=== PATIENT | female | born 1965 | race Caucasian/White ===

== ENCOUNTER → 2017-09-07 16:23 | Outpatient (CLI) | payer OTHER, SELFPAY ==
--- NOTE | 2017-09-07 16:33 | HPBI_ITS ---
MAMMOGRAPHY - BILATERAL SCREENING REASON FOR EXAM: Female, 51 years old. Routine annual screening examination. PERTINENT HISTORY: Mother with breast cancer. Grandmother with breast cancer. TECHNIQUE: Digital bilateral breast addis (3D mammographic acquisition) in the CC and MLO projections. 2-D mediolateral oblique (MLO) and craniocaudad (CC) views of both breasts were obtained. CAD: Full Field Digital Mammography with Computer Added Detection was performed. COMPARISON: Comparison is made with prior outside examination dated January 07, 2016. FINDINGS: Breast Composition: The breasts are extremely dense, which lowers the sensitivity of mammography. There are no dominant masses or suspicious calcifications. No other significant abnormalities are identified. There has been no significant change since the prior study. HPBI/SCREENING MAMM (CAD), BILAT IMPRESSION: Stable bilateral screening mammogram. Yearly follow-up mammogram recommended. (A) ASSESSMENT CATEGORY: BIRADS Category 1: Negative. A letter regarding these results will be sent to the patient by the facility within 30 days. Approximately 10% of breast cancers are not detected by mammography. A normal mammogram should not delay biopsy of a clinically suspicious abnormality. [id number] Electronically Signed: Gilberto Quinn MD at 8:53 EST Tel [phone], Service support ,
== END ==
PROVIDERS: Family Provider Family Medicine; PCP Family Medicine; Visit Provider Nurse Practitioner Women's Health
DX: Z12.31 Encounter for screening mammogram for malignant neoplasm of breast (principal)
CPT/HCPCS: 77063; 77067

== ENCOUNTER → 2019-12-22 10:57 | Outpatient (CLI) | payer OTHER, SELFPAY ==
[2019-12-22 10:40] VITALS: BMI 23.6
--- NOTE | 2019-12-22 10:58 | BI_ITS ---
MAMMOGRAPHY - BILATERAL SCREENING REASON FOR EXAM: Female, 54 years old. Routine annual screening examination. PERTINENT HISTORY: Mother with breast cancer. Grandmother with breast cancer. TECHNIQUE: Digital bilateral breast perez (3D mammographic acquisition) in the CC and MLO projections. 2-D mediolateral oblique (MLO) and craniocaudad (CC) views of both breasts were obtained. CAD: Full Field Digital Mammography with Computer Added Detection was performed. COMPARISON: Comparison is made with prior examination dated September 07, 2017. FINDINGS: Breast Composition: The breasts are extremely dense, which lowers the sensitivity of mammography. There are no dominant masses or suspicious calcifications. Stable benign appearing bilateral axillary lymph nodes. No other significant abnormalities are identified. There has been no significant change since the prior study. BI/SCREEN MAMM (CAD) W/PEREZ BILAT IMPRESSION: Stable bilateral screening mammogram. Yearly follow-up mammogram recommended. (A) ASSESSMENT CATEGORY: BIRADS Category 2: Benign. A letter regarding these results will be sent to the patient by the facility within 30 days. Approximately 10% of breast cancers are not detected by mammography. A normal mammogram should not delay biopsy of a clinically suspicious abnormality. [id number] Electronically Signed: Gilberto Quinn, at 10:36 EDT , Service support ,
== END ==
PROVIDERS: PCP Family Medicine; Referring Provider Nurse Practitioner Women's Health; Visit Provider Nurse Practitioner Women's Health
DX: Z12.31 Encounter for screening mammogram for malignant neoplasm of breast (principal); Z80.3 Family history of malignant neoplasm of breast
CPT/HCPCS: 77063; 77067

== ENCOUNTER → 2020-11-20 07:07 | Outpatient (CLI) | payer OTHER, SELFPAY ==
[2019-12-22 10:40] VITALS: BMI 23.6
[2020-11-20 10:18] LABS: Absolute Lymphocyte Count 2.51 X10^3/uL (0.83-4.51); Absolute Neutrophil Count 2.6 X10^3/uL (2.0-7.7); Basophil# 0.07 X10^3/uL; Basophil% 1.2 % (0-1); Eosinophil# 0.09 X10^3/uL; Eosinophils% 1.6 % (0-5); Hematocrit 39.6 % (37-47); Hemoglobin 12.8 g/dL (12.0-15.0); Lymphocyte # 2.51 X10^3/ul (0.83-4.51); Lymphocyte % 43.7 % (19-41); Mean Corp Hgb Conc 32.3 g/dL (32-36); Mean Corpuscular Hgb 29.1 pg (27.0-32.0); Monocyte# 0.48 X10^3/uL; Monocyte% 8.4 % (0-10); NRBC Flagged by Analyzer 0 % (0-5); Neutrophil # 2.56 X10^3/uL (2.7-7.7); Neutrophil % 44.6 % (47-70); Platelet Count 256 K/mm3 (150-450); RBC Distribution Width CV 12.1 % (11.6-14.6); RBC Distribution Width SD 39.8 fl (35.1-43.9); White Blood Count 5.7 K/mm3 (4.4-11.0)
[2020-11-20 10:54] LABS: ALB/GLOB Ratio 1.1 RATIO (0.9-2.4); AST(SGOT) 18 U/L (15-37); Alanine Aminotransfer ALT/SGPT 21 U/L (13-56); Albumin, Serum 3.9 g/dL (3.2-5.0); Alkaline Phosphatase 61 U/L (45-117); Anion Gap 6 (5-15); BUN 10 mg/dL (7-18); BUN/Creat Ratio 14.1 RATIO (10-20); Calcium,Total 9.3 mg/dL (8.5-10.1); Chloride 103 mmol/L (98-107); Cholesterol 255 mg/dL (200); Creatinine, Serum 0.71 mg/dL (0.55-1.02); EST Glomerular Filtration Rate 90 mL/min (>60); Est Glom Filt Rate - Afr Amer 109 mL/min (>60); Globulin 3.4 g/dL (2.2-4.2); Glucose 88 mg/dL (74-106); High Density Lipoprotein 75 mg/dL; Potassium 3.7 mmol/L (3.5-5.1); Protein, Total 7.3 g/dL (6.4-8.2); Sodium Level 139 mmol/L (136-145); Triglycerides 125 mg/dL; Very Low Density Lipoprotein 25 mg/dL (5-40)
== END ==
PROVIDERS: PCP Family Medicine; Referring Provider Family Medicine; Visit Provider Family Medicine
DX: E78.00 Pure hypercholesterolemia, unspecified (principal)
CPT/HCPCS: 36415; 80053; 80061; 85025

== ENCOUNTER 2021-10-08 12:40 | Outpatient (CLI) | payer OTHER, SELFPAY ==
--- NOTE | 2021-10-08 12:42 | BI_ITS ---
MAMMOGRAPHY - BILATERAL SCREENING REASON FOR EXAM: Female, 55 years old. Routine annual screening examination. PERTINENT HISTORY: Mother with breast cancer. Grandmother with breast cancer. TECHNIQUE: Digital bilateral breast perez (3D mammographic acquisition) in the CC and MLO projections. 2-D mediolateral oblique (MLO) and craniocaudad (CC) views of both breasts were obtained. CAD: Full Field Digital Mammography with Computer Added Detection was performed. COMPARISON: Comparison is made with prior study dated 12/22/2019 and 09/07/2017. FINDINGS: Breast Composition: The breasts are extremely dense, which lowers the sensitivity of mammography. There are no dominant masses or suspicious calcifications. Stable small benign-appearing bilateral axillary lymph nodes. No other significant abnormalities are identified. There has been no significant change since the prior study. BI/SCRN MAMM (CAD)W/PEREZ BILAT IMPRESSION: Stable bilateral screening mammogram. Yearly follow-up mammogram recommended. (A) ASSESSMENT CATEGORY: BIRADS Category 2: Benign. A letter regarding these results will be sent to the patient by the facility within 30 days. Approximately 10% of breast cancers are not detected by mammography. A normal mammogram should not delay biopsy of a clinically suspicious abnormality. [id number] Electronically Signed: Gilberto Quinn MD at 13:56 EST ,
== END 2021-10-08 23:59 | disposition home or self-care (01) ==
LOC: OPBI 12:41
PROVIDERS: PCP Family Medicine; Visit Provider Nurse Practitioner Women's Health
DX: Z12.31 Encounter for screening mammogram for malignant neoplasm of breast (principal)
CPT/HCPCS: 77063; 77067

== ENCOUNTER → 2023-04-30 | Outpatient (CLI) | payer OTHER, SELFPAY ==
[2023-04-30 17:47] LABS: Absolute Neutrophil Count 4.4 X10^3/uL (2.0-7.7); Basophil# 0.06 X10^3/uL; Basophil% 0.8 % (0-1); Eosinophil# 0.08 X10^3/uL; Eosinophils% 1.1 % (0-5); Hemoglobin 13.3 g/dL (12.0-15.0); Lymphocyte % 31.5 % (19-41); Mean Corp Hgb Conc 33.3 g/dL (32-36); Mean Corpuscular Hgb 30.2 pg (27.0-32.0); Mean Corpuscular Volume 90.9 fL (81-99); Mean Platelet Vol. 10.5 fl (6.2-12.0); Monocyte# 0.45 X10^3/uL; Monocyte% 6.2 % (0-10); NRBC Flagged by Analyzer 0 % (0-5); Neutrophil # 4.39 X10^3/uL (2.7-7.7); Neutrophil % 60.1 % (47-70); Platelet Count 276 K/mm3 (150-450); RBC Distribution Width CV 11.9 % (11.6-14.6); RBC Distribution Width SD 40.2 fl (35.1-43.9); White Blood Count 7.3 K/mm3 (4.4-11.0)
[2023-04-30 18:06] LABS: Hemoglobin A1c 5.3 % (3.8-5.6)
[2023-04-30 18:29] LABS: ALB/GLOB Ratio 1.1 RATIO (0.9-2.4); AST(SGOT) 21 U/L (15-37); Alanine Aminotransfer ALT/SGPT 32 U/L (13-56); Albumin, Serum 4.1 g/dL (3.2-5.0); Alkaline Phosphatase 53 U/L (45-117); Anion Gap 6 (5-15); BUN 26 mg/dL (7-18); BUN/Creat Ratio 39.7 RATIO (10-20); Calcium,Total 9.4 mg/dL (8.5-10.1); Chloride 105 mmol/L (98-107); Cholesterol 249 mg/dL (200); Creatinine, Serum 0.66 mg/dL (0.55-1.02); EST Glomerular Filtration Rate 98 mL/min (>60); Est Glom Filt Rate - Afr Amer 119 mL/min (>60); Globulin 3.6 g/dL (2.2-4.2); Glucose 99 mg/dL (74-106); High Density Lipoprotein 71 mg/dL; Potassium 4.1 mmol/L (3.5-5.1); Protein, Total 7.7 g/dL (6.4-8.2); Sodium Level 138 mmol/L (136-145); Thyroid Stim Hormone (TSH) 1.74 uIU/mL (0.358-3.74); Triglycerides 268 mg/dL; Very Low Density Lipoprotein 54 mg/dL (5-40)
== END | disposition home or self-care (01) ==
LOC: MFPLAB 15:57
PROVIDERS: PCP Family Medicine; Visit Provider Family Medicine
DX: Z00.00 Encounter for general adult medical examination without abnormal findings (principal); Z13.0 Encounter for screening for diseases of the blood and blood-forming organs and certain disorders involving the immune mechanism; E78.00 Pure hypercholesterolemia, unspecified; Z13.1 Encounter for screening for diabetes mellitus; Z13.29 Encounter for screening for other suspected endocrine disorder
CPT/HCPCS: 36415; 80053; 80061; 83036; 84443; 85025

== ENCOUNTER → 2023-09-30 | Outpatient (CLI) | payer OTHER, SELFPAY ==
--- NOTE | 2023-09-30 08:19 | BI_ITS ---
MAMMOGRAPHY - BILATERAL SCREENING REASON FOR EXAM: Female, 57 years old. Routine annual screening examination. PERTINENT HISTORY: Mother with breast cancer. Grandmother with breast cancer. TECHNIQUE: Digital bilateral breast perez (3D mammographic acquisition) in the CC and MLO projections. 2-D mediolateral oblique (MLO) and craniocaudad (CC) views of both breasts were obtained. CAD: Full Field Digital Mammography with Computer Added Detection was performed. COMPARISON: Comparison is made with prior study October 08, 2021 and December 22, 2019. FINDINGS: Breast Composition: The breasts are extremely dense, which lowers the sensitivity of mammography. There are no dominant masses or suspicious calcifications. Stable small benign-appearing bilateral axillary lymph nodes. No other significant abnormalities are identified. There has been no significant change since the prior study. BI/SCRN MAMM (CAD)W/PEREZ BILAT IMPRESSION: Stable bilateral screening mammogram. Yearly follow-up mammogram recommended. (A) ASSESSMENT CATEGORY: BIRADS Category 2: Benign. A letter regarding these results will be sent to the patient by the facility within 30 days. Approximately 10% of breast cancers are not detected by mammography. A normal mammogram should not delay biopsy of a clinically suspicious abnormality. [id number] Electronically Signed: Gilberto Quinn MD at 12:04 EST ,
[2023-10-06 08:12] LABS: HPV APTIMA, High Risk Negative (Negative)
== END | disposition home or self-care (01) ==
PROVIDERS: PCP Family Medicine; Referring Provider Nurse Practitioner Women's Health; Visit Provider Nurse Practitioner Women's Health
DX: Z12.31 Encounter for screening mammogram for malignant neoplasm of breast (principal); Z12.4 Encounter for screening for malignant neoplasm of cervix; Z78.0 Asymptomatic menopausal state
CPT/HCPCS: 77063; 77067; 87624; 88175; G0145

== ENCOUNTER → 2025-05-17 | Outpatient (CLI) | payer BC, SELFPAY ==
[2025-05-17 12:19] LABS: Hematocrit 37.7 % (37-47); Hemoglobin 12.5 g/dL (12.0-15.0); Immature Granulocytes Count 0.050 X10^3/uL (0.0-0.0); Mean Corp Hgb Conc 33.2 g/dL (32-36); Mean Corpuscular Volume 88.9 fL (81-99); Mean Platelet Vol. 9.3 fl (6.2-12.0); NRBC Flagged by Analyzer 0 % (0-5); Platelet Count 309 K/mm3 (150-450); RBC Distribution Width CV 11.7 % (11.6-14.6); RBC Distribution Width SD 37.2 fl (35.1-43.9); Red Blood Count 4.24 M/mm3 (4.2-5.4); White Blood Count 6.3 K/mm3 (4.4-11.0)
[2025-05-17 13:32] LABS: AST(SGOT) 18 U/L (<=31); Alanine Aminotransfer ALT/SGPT 13 U/L (<=34); Albumin, Serum 4.3 g/dL (3.4-4.8); Alkaline Phosphatase 71 U/L (35-104); Anion Gap 12 (5-15); BUN 17 mg/dL (4-19); BUN/Creat Ratio 28.7 RATIO (10-20); Calcium,Total 9.9 mg/dL (7.6-11.0); Carbon Dioxide 25.6 mmol/L (21.0-32.0); Chloride 102 mmol/L (98-108); Cholesterol 194 mg/dL (<=200); Globulin 3.2 g/dL (2.2-4.2); Glucose 100 mg/dL (70-99); Low Density Lipoprotein Calc. 120 mg/dL; Potassium 4.2 mmol/L (3.3-5.1); Triglycerides 77 mg/dL; Very Low Density Lipoprotein 15 mg/dL (5-40); cholesterol:hdl ratio screen 3.31
== END | disposition home or self-care (01) ==
LOC: VSLAB 09:54
PROVIDERS: PCP Family Medicine; Visit Provider Family Medicine
DX: Z13.228 Encounter for screening for other metabolic disorders (principal); Z13.6 Encounter for screening for cardiovascular disorders
CPT/HCPCS: 36415; 80053; 80061; 83036; 84443; 85025

== ENCOUNTER → 2025-05-23 | Outpatient (CLI) | payer OTHER, SELFPAY ==
--- NOTE | 2025-05-23 07:22 | US_ITS ---
PROCEDURE: HEAD/NECK SOFT TISSUE 05/23/2025 REASON FOR EXAM: SWELLING, MASS AND LUMP TECHNIQUE: Procedure Code: USH/N SOFT Modality: US Procedure: HEAD/NECK SOFT TISSUE Technique: Ultrasound examination of the thyroid and adjacent soft tissues was performed. COMPARISON: None FINDINGS: Right thyroid lobe: 4 x 1.5 x 1.9 cm. Left thyroid lobe: 4.4 x 1.3 x 1.7 cm. Isthmus: 0.2 cm in AP dimension. Echo architecture: Lobulated heterogeneous appearance of the thyroid without distinct mass or nodule.. No suspicious nodule identified. Benign-appearing lymph nodes present in the neck not pathologically enlarged by size criteria. US/Head/Neck Soft Tissue IMPRESSION: No suspicious nodule identified. ACR TI-RADS 1. Reading Location: [id number]
--- OUTSIDE RECORDS SUMMARY | 2025-05-23 07:28 | XMS RPT_ITS | CCD ---
Author Organization [facility] Care Team Providers Care Distribution Operations Supervisor Name Role Phone DO Katerine Pacheco Primary Care Provider DO Katerine Pacheco Referring Provider DIANA Sanders Attending Provider [phone] Janice RAYMUNDO, RAFAEL Avila Attending Provider Judith Shay Attending Unavailable Judith Shay Referring Unavailable Judith Shay Primary Care Unavailable Tara VSJudith Alexander Attending Unavailable Judith Shay Primary Care Unavailable Allergies Allergy Classification Reported Allergen(s) Allergy Type Date of Onset Reaction(s) Facility (1 source) Codeine Drug Allergy 09-30-2023 Nausea [facility] (1 source) Codeine Drug Allergy 09-30-2023 [facility] Repository Medications Current Medications Medication Drug Class(es) Dates Sig (Normalized) Sig (Original) estradiol 0.1 mg/ml vaginal cream (3 sources) Estrogen Start: 10-17-2021 End: 09-30-2023 Estradiol Active 0 VAGINAL .COMPLEX 42.5 September 30, 2023 8:51am small amount as directed vaginal 2-3 times per week Start: 12-22-2019 End: 10-17-2021 Estradiol (Estrace) 0.01 % ( 0.1 mg/gram) cream Discontinued 0 VAGINAL .COMPLEX 42.5 December 21, 2019 11:00pm October 17, 2021 12:20pm pea sized amount VAGINAL every other day X 4 weeks then twice a week; Multivitamin preparation (1 source) Start: 10-17-2021 take 1 tablet by mouth once daily Multivitamin Active 1 TABLET PO DAILY October 16, 2021 11:00pm Completed/Discontinued Medications Medication Drug Class(es) Dates Sig (Normalized) Sig (Original) methylPREDNISolone 4 mg oral tablet (1 source) Corticosteroid Start: 4 End: 4 take 1 tablet by mouth once Methylprednisolone (Medrol (Eldon)) 4 mg tablets,dose pack Discontinued 4 MG PO per package directions 21 01September 25, 2023 12:00am October 01, 2023 12:05am Problems Problem Classification Problem Date Documented Da te Episodic/Chronic Genitourinary symptoms and ill-defined conditions (2 sources) Genuine stress incontinence; Translations: [Stress incontinence (female) (male)] 09-30-2023 Chronic Menopausal disorders (2 sources) Atrophic vaginitis; Translations: [Postmenopausal atrophic vaginitis] 09-30-2023 Chronic Other and unspecified benign neoplasm (1 source) Lipoma (clinical); Translations: [Benign lipomatous neoplasm, unspecified] 10-17-2021 Episodic Other skin disorders (1 source) Localized swelling, mass and lump, neck; Translations: [Localized swelling, mass and lump, neck] Onset: 05-22-2025 Episodic Results Test Name Value Interpretation Reference Range Facil ity CBC W/Diff, Automatedon 10- Absolute Lymph 1.82 X10 3/uL Normal 0.83-4.51 [facility] Comment on above: Performed By: #### L 100.0100, L501.9985, L500.4100, L501.9520, L500.4050 #### [facility] [address] [place], [address] Absolute Neut 3.8 X10 3/uL Normal 2.0-7.7 [facility] Comment on above: Performed By: #### L 100.0100, L501.9985, L500.4100, L501.9520, L500.4050 #### [facility] [address] [place], [address] Basophils/100 WBC (Bld) 0.8 % Normal 0-1 [facility] Comment on above: Performed By: #### L 100.0100, L501.9985, L500.4100, L501.9520, L500.4050 #### [facility] [address] [place], [address] Eosinophils/100 WBC (Bld) 1.4 % Normal 0-5 [facility] Comment on above: Performed By: #### L 100.0100, L501.9985, L500.4100, L501.9520, L500.4050 #### [facility] [address] [place], [address] Erythrocyte distribution width (RBC) [Ratio] 11.7 % Normal 11.6-14.6 [facility] Comment on above: Performed By: #### L 100.0100, L501.9985, L500.4100, L501.9520, L500.4050 #### [facility] [address] [place], [address] Hematocrit (Bld) [Volume fraction] 37.7 % Normal 37-47 [facility] Comment on above: Performed By: #### L 100.0100, L501.9985, L500.4100, L501.9520, L500.4050 #### [facility] [address] [place], [address] Hemoglobin (Bld) [Mass/Vol] 12.5 g/dL Normal 12.0-15.0 [facility] Comment on above: Performed By: #### L 100.0100, L501.9985, L500.4100, L501.9520, L500.4050 #### [facility] [address] [place], [address] IG% 0.800 Normal 0.0-0.9 [facility] Comment on above: Result Comment: IG% - Immature Granulocytes (promyelocytes, myelocytes and metamyelocytes) > 1% indicates that a LEFT SHIFT is Present. Performed By: #### L 100.0100, L501.9985, L500.4100, L501.9520, L500.4050 #### [facility] [address] [place], [address] Lymphocytes/100 WBC (Bld) 29.0 % Normal 19-41 [facility] Comment on above: Performed By: #### L 100.0100, L501.9985, L500.4100, L501.9520, L500.4050 #### [facility] [address] [place], [address] MCH (RBC) [Entitic mass] 29.5 pg Normal 27.0-32.0 [facility] Comment on above: Performed By: #### L 100.0100, L501.9985, L500.4100, L501.9520, L500.4050 #### [facility] [address] [place], [address] MCHC (RBC) [Mass/Vol] 33.2 g/dL Normal 32-36 [facility] Comment on above: Performed By: #### L 100.0100, L501.9985, L500.4100, L501.9520, L500.4050 #### [facility] [address] [place], [address] MCV (RBC) [Entitic vol] 88.9 fL Normal 81-99 [facility] Comment on above: Performed By: #### L 100.0100, L501.9985, L500.4100, L501.9520, L500.4050 #### [facility] [address] [place], [address] Monocytes/100 WBC (Bld) 7.2 % Normal 0-10 [facility] Comment on above: Performed By: #### L 100.0100, L501.9985, L500.4100, L501.9520, L500.4050 #### [facility] [address] [place], [address] Neutrophils/100 WBC (Bld) 60.8 % Normal 47-70 [facility] Comment on above: Performed By: #### L 100.0100, L501.9985, L500.4100, L501.9520, L500.4050 #### [facility] [address] [place], [address] Nucleated RBC (Bld) [#/Vol] 0 10*3/uL Normal 0-5 [facility] Comment on above: Performed By: #### L 100.0100, L501.9985, L500.4100, L501.9520, L500.4050 #### [facility] [address] [place], [address] Platelet mean volume (Bld) [Entitic vol] 9.3 fL Normal 6.2-12.0 [facility] Comment on above: Performed By: #### L 100.0100, L501.9985, L500.4100, L501.9520, L500.4050 #### [facility] [address] [place], [address] Platelets (Bld) [#/Vol] 309 10*3/uL Normal 150-450 [facility] Comment on above: Performed By: #### L 100.0100, L501.9985, L500.4100, L501.9520, L500.4050 #### [facility] [address] [place], [address] RBC (Bld) [#/Vol] 4.24 10*6/uL Normal 4.2-5.4 [facility] Comment on above: Performed By: #### L 100.0100, L501.9985, L500.4100, L501.9520, L500.4050 #### [facility] [address] [place], [address] RDW SD 37.2 fl Normal 35.1-43.9 [facility] Comment on above: Performed By: #### L 100.0100, L501.9985, L500.4100, L501.9520, L500.4050 #### [facility] [address] [place], [address] WBC (Bld) [#/Vol] 6.3 10*3/uL Normal 4.4-11.0 [facility] Comment on above: Performed By: #### L 100.0100, L501.9985, L500.4100, L501.9520, L500.4050 #### [facility] [address] [place], [address] Comprehensive Metabolic Prof [facility] 05-17-2025 Albumin [Mass/Vol] 4.3 g/dL Normal 3.4-4.8 [facility] Comment on above: Performed By: #### L 100.0100, L501.9985, L500.4100, L501.9520, L500.4050 #### [facility] [address] [place], [address] Albumin/Globulin [Mass ratio] 1.4 {ratio} Normal 0.9-2.4 [facility] Comment on above: Performed By: #### L 100.0100, L501.9985, L500.4100, L501.9520, L500.4050 #### [facility] [address] [place], [address] ALK PHOS 71 U/L Normal 35-104 [facility] Comment on above: Performed By: #### L 100.0100, L501.9985, L500.4100, L501.9520, L500.4050 #### [facility] [address] [place], [address] ALT [Catalytic activity/Vol] 13 U/L Normal <=34 [facility] Comment on above: Performed By: #### L 100.0100, L501.9985, L500.4100, L501.9520, L500.4050 #### [facility] [address] [place], [address] AST [Catalytic activity/Vol] 18 U/L Normal <=31 [facility] Comment on above: Performed By: #### L 100.0100, L501.9985, L500.4100, L501.9520, L500.4050 #### [facility] [address] [place], [address] Bilirubin [Mass/Vol] 0.37 mg/dL Normal 0.00-1.30 [facility] Comment on above: Performed By: #### L 100.0100, L501.9985, L500.4100, L501.9520, L500.4050 #### [facility] [address] [place], [address] BUN/CRE 28.7 RATIO High 10-20 [facility] Comment on above: Performed By: #### L 100.0100, L501.9985, L500.4100, L501.9520, L500.4050 #### [facility] [address] [place], [address] Calcium [Mass/Vol] 9.9 mg/dL Normal 7.6-11.0 [facility] Comment on above: Performed By: #### L 100.0100, L501.9985, L500.4100, L501.9520, L500.4050 #### [facility] [address] [place], [address] Chloride [Moles/Vol] 102 mmol/L Normal 98-108 [facility] Comment on above: Performed By: #### L 100.0100, L501.9985, L500.4100, L501.9520, L500.4050 #### [facility] [address] [place], [address] CO2 [Moles/Vol] 25.6 mmol/L Normal 21.0-32.0 [facility] Comment on above: Performed By: #### L 100.0100, L501.9985, L500.4100, L501.9520, L500.4050 #### [facility] [address] [place], [address] Creatinine [Mass/Vol] 0.60 mg/dL Low 0.70-1.20 [facility] Comment on above: Performed By: #### L 100.0100, L501.9985, L500.4100, L501.9520, L500.4050 #### [facility] [address] [place], [address] GAP 12 Normal 5-15 [facility] Comment on above: Performed By: #### L 100.0100, L501.9985, L500.4100, L501.9520, L500.4050 #### [facility] [address] [place], [address] GFR/1.73 sq M.predicted among non-blacks MDRD (S/P/Bld) [Vol rate/Area] 102 mL/min/{1.73_m2} Normal >60 [facility] Comment on above: Result Comment: mL/m in/1.73m2 CKD-EPI Creatinine Equation (2020) Performed By: #### L 100.0100, L501.9985, L500.4100, L501.9520, L500.4050 #### [facility] [address] [place], [address] Globulin (S) [Mass/Vol] 3.2 g/dL Normal 2.2-4.2 [facility] Comment on above: Performed By: #### L 100.0100, L501.9985, L500.4100, L501.9520, L500.4050 #### [facility] [address] [place], [address] Glucose [Mass/Vol] 100 mg/dL High 70-99 [facility] Comment on above: Performed By: #### L 100.0100, L501.9985, L500.4100, L501.9520, L500.4050 #### [facility] [address] [place], [address] Potassium [Moles/Vol] 4.2 mmol/L Normal 3.3-5.1 [facility] Comment on above: Performed By: #### L 100.0100, L501.9985, L500.4100, L501.9520, L500.4050 #### [facility] [address] [place], [address] Sodium [Moles/Vol] 139 mmol/L Normal 133-145 [facility] Comment on above: Performed By: #### L 100.0100, L501.9985, L500.4100, L501.9520, L500.4050 #### [facility] [address] [place], [address] T PROT 7.4 g/dL Normal 5.9-8.4 [facility] Comment on above: Performed By: #### L 100.0100, L501.9985, L500.4100, L501.9520, L500.4050 #### [facility] [address] [place], [address] Urea nitrogen [Mass/Vol] 17 mg/dL Normal 4-19 [facility] Comment on above: Performed By: #### L 100.0100, L501.9985, L500.4100, L501.9520, L500.4050 #### [facility] [address] [place], [address] Hemoglobin A1con 05-17-2025 HbA1c (Bld) [Mass fraction] 5.9 % High <=5.6 [facility] Comment on above: Result Comment: Norm al < 5.7 % Prediabetic 5.7 - 6.4 % Diabetic >or= 6.5 % Please note range changes. Performed By: #### L 100.0100, L501.9985, L500.4100, L501.9520, L500.4050 #### [facility] [address] [place], [address] Lipid Profileon 05-17-2025 CHOL:HDL 3.31 Normal [facility] Comment on above: Performed By: #### L 100.0100, L501.9985, L500.4100, L501.9520, L500.4050 #### [facility] [address] [place], [address] Cholesterol [Mass/Vol] 194 mg/dL Normal <=200 [facility] Comment on above: Result Comment: Chol esterol level, Desirable <200 mg/dL Borderline high cholesterol 200-239 mg/dL High cholesterol >=240 mg/dL Recommendations of the NCEP Adult Treatment Panel for the following risk-cutoff thresholds for the [place] population. Performed By: #### L 100.0100, L501.9985, L500.4100, L501.9520, L500.4050 #### [facility] [address] [place], [address] Cholesterol in HDL [Mass/Vol] 59 mg/dL Normal [facility] Comment on above: Result Comment: [place] onal Cholesterol Education Program (NCEP) guidelines: <40 mg/dL: Low HDL-cholesterol (major risk factor for CHD) >= 60 mg/dL: High HDL-cholesterol (negative risk factor for CHD) HDL-cholesterol is affected by a number of factors, e.g. smoking, exercise, hormones, sex and age. Performed By: #### L 100.0100, L501.9985, L500.4100, L501.9520, L500.4050 #### [facility] [address] [place], [address] Cholesterol in LDL [Mass/Vol] 120 mg/dL Normal [facility] Comment on above: Result Comment: Bord ldqbhe=001-602 mg/dL Higher Omqu=032 mg/dL or greater Friedwald Equation for LDL-C Performed By: #### L 100.0100, L501.9985, L500.4100, L501.9520, L500.4050 #### [facility] [address] [place], [address] Cholesterol in VLDL [Mass/Vol] 15 mg/dL Normal 5-40 [facility] Comment on above: Performed By: #### L 100.0100, L501.9985, L500.4100, L501.9520, L500.4050 #### [facility] [address] [place], [address] Triglyceride [Mass/Vol] 77 mg/dL Normal [facility] Comment on above: Result Comment: The drugs N-Acetylcysteine and Metamizole may falsely depress this assay. Normal range: <150 mg/dL Borderline High: 150-199 mg/dL High: 200-499 mg/dL Very High: >500 mg/dL Performed By: #### L 100.0100, L501.9985, L500.4100, L501.9520, L500.4050 #### [facility] [address] [place], [address] Thyroid Stim Hormone (TSH)on 05-17-2025 TSH 0.084 uIU/mL Low 0.300-4.200 [facility] Comment on above: Performed By: #### L 100.0100, L501.9985, L500.4100, L501.9520, L500.4050 #### [facility] [address] [place], [address] Vital Signs Date Time Vital Sign Value Performing Clinician Leidy feliciano 09-30-2023 08:46-0500 Body height 165.1 cm DO Katerine Tara Work Phone: [facility] 09-30-2023 08:41-0500 Body mass index (BMI) [Ratio] 22.8 kg/m2 DO Katerine Tara Work Phone: [facility] 09-30-2023 08:41-0500 Body weight 62.25 kg DO Katerine Tara Work Phone: [facility] 09-30-2023 08:41-0500 Diastolic blood pressure 72 mm[Hg] DO Katerine Tara Work Phone: [facility] 09-30-2023 08:41-0500 Systolic blood pressure 112 mm[Hg] DO Katreine Tara Work Phone: [facility] 09-25-2023 08:05-0500 Body mass index (BMI) [Ratio] 23.6 kg/m2 DO Katerine Tara Work Phone: [facility] 09-25-2023 08:05-0500 Body temperature 98.1 [degF] DO Katerine Tara Work Phone: [facility] 09-25-2023 08:05-0500 Body weight 64.52 kg DO Katerine Tara Work Phone: [facility] 09-25-2023 08:05-0500 Diastolic blood pressure 62 mm[Hg] DO Katerine Tara Work Phone: [facility] 09-25-2023 08:05-0500 Heart rate 75 /min DO Katerine Tara Work Phone: [facility] 09-25-2023 08:05-0500 Respiratory rate 15 /min DO Katerine Tara Work Phone: [facility] 09-25-2023 08:05-0500 SaO2% (BldA) [Mass fraction] 96 % DO Katerine Tara Work Phone: [facility] 09-25-2023 08:05-0500 Systolic blood pressure 122 mm[Hg] DO Katerine Pacheco Work Phone: [facility] Encounters Encounter Date Encounter Type Care Provider Facility Start: 05-23-2025 ambulatory Judith Pacheco [facility] Faci lity:[facility] Start: 05-17-2025 ambulatory Judith Pacheco [facility] Faci lity:[facility] Start: 09-30-2023 End: 09-30-2023 ambulatory DO Katerine Pacheco Work Phone: [facility] Work Phone: Start: 09-30-2023 End: 09-30-2023 Patient encounter procedure DO Katerine Pacheco Work Phone: [facility] Work Phone: Start: 09-25-2023 End: 09-25-2023 Patient encounter procedure DO Katerine Pacheco Work Phone: [facility] Work Phone: Procedures Date Procedure Procedure Detail Performing Clinician Start: 09-30-2023 Screening mammography D O Katerine Albrightnger Work Phone: Plan of Treatment Date Care Activity Detail Author Start: 09-30-2023 Liquid based cervica l cytology screening [facility] Path report.final Dx Spec [facility] Payers Date Payer Category Payer Self-pay [id number] Unknown [id number] 2009 Unknown [employer] [id number] Private Health Insurance [employer] [id number] Unknown [id number] Unknown [id number] Social History Date Type Detail Facility Start: 09-30-2023 Tobacco smoking stat us [facility]IS Unknown if ever smoked [facility] Start: 06-27-2021 Occasional [facility] Start: 06-27-2021 None [facility] Start: 06-27-2021 Homeless [facility] Start: 06-27-2021 Non-smoker [facility] Start: 1965 Sex Assigned At Female [facility] Evaluation note Note Date & Type Note Facility Evaluation note Diagnosis Onset Date Atrophic vaginitis acute Stress incontinence of urine acute Encounter for routine gyneco logical examination noneactive [facility] Work Phone: Chief Complaint and Reason for Visit Chief Complaint FEVER, CHILLS, 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 Arnav Guadalupe MD Family Provider Active Katerine Pacheco DO Primary Care Provider Active Team Status: Inactive Member Role Status Dates Katerine Pacheco DO Primary Care Provider, Referring Provider Active Margarita Camacho NP, ZACKARY-C Attending Provider Active Team Status: Inactive Member Role Status Dates Katerine Pacheco DO Primary Care Provider, Referring Provider Active Manny ORTIZ, PA Attending Provider Active Team Status: Inactive Member Role Status Dates Katerine Pacheco DO Primary Care Provider Active Margarita Camacho NP, ZACKARY-C Attending Provider, Referring Provider Active Goals (unrecognized section and content) Goals may be documented in a n alternate section INFORMATION SOURCE (unrecogn ized section and content) DATE CREATED AUTHOR 05/22/2025 [facility] FOR RECORDS PERTAINING TO PATIENTS WHO ARE OR HAVE BEEN ENROLLED IN A CHEMICAL DEPENDENCY/SUBSTANCEABUSE PROGRAM, SOME INFORMATION MAY BE OMITTED. This clinical summary was aggregated from multiple sources. Caution should be exercised in using it in the provision of clinical care. This summary normalizes information from multiple sources, and as a consequence, information in this document may materially change the coding, format and clinical context of patient data. In addition, data may be omitted in some cases. CLINICAL DECISIONS SHOULD BE BASED ON THE PRIMARY CLINICAL RECORDS. [facility]. provides no warranty or guarantee of the accuracy or completeness of information in this document.
== END | disposition home or self-care (01) ==
PROVIDERS: PCP Family Medicine; Referring Provider Family Medicine; Visit Provider Family Medicine
DX: R22.1 Localized swelling, mass and lump, neck (principal)
CPT/HCPCS: 76536

== ENCOUNTER → 2025-05-30 | Outpatient (CLI) | payer OTHER, SELFPAY ==
[2025-05-30 13:24] LABS: Free T3 4.9 pg/mL (2.18-3.98)
[2025-06-01 09:09] LABS: Thyroglobulin, Serum Qt. 151.8 ng/mL (1.5-38.5)
[2025-06-01 17:46] LABS: Thyroid Stim Immunoglob <0.10 IU/L (0.00-0.55)
== END | disposition home or self-care (01) ==
LOC: VSLAB 08:02
PROVIDERS: PCP Family Medicine; Visit Provider Family Medicine
DX: R94.6 Abnormal results of thyroid function studies (principal)
CPT/HCPCS: 36415; 84432; 84439; 84443; 84445; 84481; 86376; 86800

== ENCOUNTER → 2025-06-14 | Outpatient (CLI) | payer BC, SELFPAY ==
--- OUTSIDE RECORDS SUMMARY | 2025-06-14 06:51 | XMS RPT_ITS | CCD ---
Author Organization [facility] Care Team Providers Care Rn Dialysis Name Role Phone DO Katerine Pacheco Primary Care Provider DO Katerine Pacheco Referring Provider DIANA Sanders Attending Provider Janice ELECTRONIC DRAFTER, RAFAEL Avila Attending Provider Tara VSC, Judith Attending Unavailable Tara VSC, Judith Primary Care Unavailable Tara VSC, Judith Referring Unavailable Tara VSC, Judith Primary Care Unavailable Tara VSBenjamin, Judith Attending Unavailable Robert Alvarez Referring Unavailable Robert Alvarez Attending Unavailable Tara VSC, Judith Primary Care Unavailable Tara VSC, Judith Attending Unavailable Tara VSC, Judith Primary Care Unavailable Allergies Allergy Classification Reported Allergen(s) Allergy Type Date of Onset Reaction(s) Facility (1 source) Codeine Drug Allergy 09-30-2023 Nausea [facility] (1 source) Codeine Drug Allergy 09-30-2023 [facility] Repository Medications Current Medications Medication Drug Class(es) Dates Sig (Normalized) Sig (Original) estradiol 0.1 mg/ml vaginal cream (3 sources) Estrogen Start: 10-17-2021 End: 09-30-2023 Estradiol Active 0 VAGINAL .COMPLEX 42.September 30, 2023 8:51am small amount as directed [...] Translations: [Stress incontinence (female) (male)] 09-30-2023 Chronic Headache; including migraine (1 source) Headache; including migraine; Translations: [Headache, unspecified] Onset: 06-07-2025 Menopausal disorders (2 sources) Atrophic vaginitis; Translations: [Postmenopausal atrophic vaginitis] 09-30-2023 Chronic Other and unspecified benign neoplasm (1 source) Lipoma (clinical); Translations: [Benign lipomatous neoplasm, unspecified] 10-17-2021 Episodic Other screening for suspected conditions (not mental disorders or infectious disease) (2 sources) Abnormal results of thyroid function studies; Translations: [Encounter for screening for other metabolic disorders] Onset: 05-26-2025 Episodic Other skin disorders (1 source) Localized swelling, mass and lump, neck; Translations: [Localized swelling, mass and lump, neck] Onset: 05-29-2025 Episodic Results Test Name Value Interpretation Reference Range Facil ity Thyroglobulin w/Anti-TG ABon 06-02-2025 Anti-TG AB TNP Normal [facility] Comment on above: Performed By: #### L 501.62106, L3300.6820, L3300.6750, L501.9520, L506.0400 #### [facility] [address] [place], [address] Thyroid Antibodieson 025 TG AB < 1.0 Normal 0.0-0.9 [facility] Comment on above: Result Comment: Thyr oglobulin Antibody measured by [employer] [place] Methodology It should be noted that the presence of thyroglobulin antibodies may not be pathogenic nor diagnostic, especially at very low levels. The assay cosmetics supervisor has found that four percent of individuals without evidence of thyroid disease or autoimmunity will have positive TgAb levels up to 4 IU/mL. Performed By: #### L 501.56713, L3300.6820, L3300.6750, L501.9520, L506.0400 #### [facility] [address] [place], [address] THYR PEROX AB 14 IU/mL Normal 0-34 [facility] Comment on above: Result Comment: Perf ormed at: [facility] [address] [id number] Cra Officer: Cam Estrada PhD, Phone: [phone] Performed By: #### L 501.49461, L3300.6820, L3300.6750, L501.9520, L506.0400 #### [facility] [address] [place], [place], [address] Thyroid Stim Immunoglobon THY STIM IMMUNO <0.10 Normal 0.00-0.55 [facility] Comment on above: Order Comment: YOGESH Harper [facility] AND ADDED THIS ON, 05-31-25 @ 1015 WITH JUSTICE. Performed By: #### L 3400.4700 #### [facility] [address] [place], [address] Free T3on 05-30-2025 Free T3 [Mass/Vol] 4.9 pg/mL High 2.18-3.98 [facility] Comment on above: Performed By: #### L 501.35539, L3300.6820, L3300.6750, L501.9520, L506.0400 #### [facility] [address] [place], [address] T4 Free Directon 05-30-2025 T4 FREE DIRECT 2.20 ng/dL High 0.76-1.46 [facility] Comment on above: Performed By: #### L 501.39578, L3300.6820, L3300.6750, L501.9520, L506.0400 #### [facility] [address] [place], [address] Thyroid Stim Hormone (TSH)on 05-30-2025 TSH 0.016 uIU/mL Low 0.300-4.200 [facility] Comment on above: Performed By: #### L 501.93554, L3300.6820, L3300.6750, L501.9520, L506.0400 #### [facility] [address] [place], [address] Head/Neck Soft Tissueon 05-04 Head/Neck Soft Tissue [facility] Imaging Services [address] [place] [address] Head/Neck Soft Tissue MR#: [id number] Acct: [id number] Name: BEST BRAN Rep #: [id number] : 1965 F 59 From: Robert castellanos MD PCP: Judith Pacheco DO Status: REG CLI Study: Head/Neck Soft Tissue Date of Exam: 05/23/25 Exam# [id number] Ordering Dr: Judith Pacheco [facility] D O PROCEDURE: HEAD/NECK SOFT TISSUE 05/23/2025 REASON FOR EXAM: SWELLING, MASS AND LUMP TECHNIQUE: Procedure Code: USH/N SOFT Modality: US Procedure: HEAD/NECK SOFT TISSUE Technique: Ultrasound examination of the thyroid and adjacent soft tissues was performed. COMPARISON: None FINDINGS: Right thyroid lobe: 4 x 1.5 x 1.9 cm. Left thyroid lobe: 4.4 x 1.3 x 1.7 cm. Isthmus: 0.2 cm in AP dimension. Echo architecture: Lobulated heterogeneous appearance of the thyroid without distinct mass or nodule.. No suspicious nodule identified. Benign-appearing lymph nodes present in the neck not pathologically enlarged by size criteria. US/Head/Neck Soft Tissue IMPRESSION: No suspicious nodule identified. ACR TI-RADS 1. Reading Location: [id number] CC: Judith Pacheco DO Core Blower Operator: Signed Normal [facility] CBC W/Diff, Automatedon 10-08 07-2024 Absolute Lymph 1.82 X10 3/uL Normal 0.83-4.51 [facility] Comment on above: Performed By: #### L 500.4100, L501.9520, L500.4050, L100.0100, L501.9985 #### [facility] [address] [place], [address] Absolute Neut 3.8 X10 3/uL Normal 2.0-7.7 [facility] Comment on above: Performed By: #### L 500.4100, L501.9520, L500.4050, L100.0100, L501.9985 #### [facility] [address] [place], [address] Basophils/100 WBC (Bld) 0.8 % Normal 0-1 [facility] Comment on above: Performed By: #### L 500.4100, L501.9520, L500.4050, L100.0100, L501.9985 #### [facility] [address] [place], [address] Eosinophils/100 WBC (Bld) 1.4 % Normal 0-5 [facility] Comment on above: Performed By: #### L 500.4100, L501.9520, L500.4050, L100.0100, L501.9985 #### [facility] [address] [place], [address] Erythrocyte distribution width (RBC) [Ratio] 11.7 % Normal 11.6-14.6 [facility] Comment on above: Performed By: #### L 500.4100, L501.9520, L500.4050, L100.0100, L501.9985 #### [facility] [address] [place], [address] Hematocrit (Bld) [Volume fraction] 37.7 % Normal 37-47 [facility] Comment on above: Performed By: #### L 500.4100, L501.9520, L500.4050, L100.0100, L501.9985 #### [facility] [address] [place], [address] Hemoglobin (Bld) [Mass/Vol] 12.5 g/dL Normal 12.0-15.0 [facility] Comment on above: Performed By: #### L 500.4100, L501.9520, L500.4050, L100.0100, L501.9985 #### [facility] [address] [place], [address] IG% 0.800 Normal 0.0-0.9 [facility] Comment on above: Result Comment: IG% - Immature Granulocytes (promyelocytes, myelocytes and metamyelocytes) > 1% indicates that a LEFT SHIFT is Present. Performed By: #### L 500.4100, L501.9520, L500.4050, L100.0100, L501.9985 #### [facility] [address] [place], [address] Lymphocytes/100 WBC (Bld) 29.0 % Normal 19-41 [facility] Comment on above: Performed By: #### L 500.4100, L501.9520, L500.4050, L100.0100, L501.9985 #### [facility] [address] [place], [address] MCH (RBC) [Entitic mass] 29.5 pg Normal 27.0-32.0 [facility] Comment on above: Performed By: #### L 500.4100, L501.9520, L500.4050, L100.0100, L501.9985 #### [facility] [address] [place], [address] MCHC (RBC) [Mass/Vol] 33.2 g/dL Normal 32-36 [facility] Comment on above: Performed By: #### L 500.4100, L501.9520, L500.4050, L100.0100, L501.9985 #### [facility] [address] [place], [address] MCV (RBC) [Entitic vol] 88.9 fL Normal 81-99 [facility] Comment on above: Performed By: #### L 500.4100, L501.9520, L500.4050, L100.0100, L501.9985 #### [facility] [address] [place], [address] Monocytes/100 WBC (Bld) 7.2 % Normal 0-10 [facility] Comment on above: Performed By: #### L 500.4100, L501.9520, L500.4050, L100.0100, L501.9985 #### [facility] [address] [place], [address] Neutrophils/100 WBC (Bld) 60.8 % Normal 47-70 [facility] Comment on above: Performed By: #### L 500.4100, L501.9520, L500.4050, L100.0100, L501.9985 #### [facility] [address] [place], [address] Nucleated RBC (Bld) [#/Vol] 0 10*3/uL Normal 0-5 [facility] Comment on above: Performed By: #### L 500.4100, L501.9520, L500.4050, L100.0100, L501.9985 #### [facility] [address] [place], [address] Platelet mean volume (Bld) [Entitic vol] 9.3 fL Normal 6.2-12.0 [facility] Comment on above: Performed By: #### L 500.4100, L501.9520, L500.4050, L100.0100, L501.9985 #### [facility] [address] [place], [address] Platelets (Bld) [#/Vol] 309 10*3/uL Normal 150-450 [facility] Comment on above: Performed By: #### L 500.4100, L501.9520, L500.4050, L100.0100, L501.9985 #### [facility] [address] [place], [address] RBC (Bld) [#/Vol] 4.24 10*6/uL Normal 4.2-5.4 [facility] Comment on above: Performed By: #### L 500.4100, L501.9520, L500.4050, L100.0100, L501.9985 #### [facility] [address] [place], [address] RDW SD 37.2 fl Normal 35.1-43.9 [facility] Comment on above: Performed By: #### L 500.4100, L501.9520, L500.4050, L100.0100, L501.9985 #### [facility] [address] [place], [address] WBC (Bld) [#/Vol] 6.3 10*3/uL Normal 4.4-11.0 [facility] Comment on above: Performed By: #### L 500.4100, L501.9520, L500.4050, L100.0100, L501.9985 #### [facility] [address] [place], [address] Comprehensive Metabolic Prof [facility] 05-17-2025 Albumin [Mass/Vol] 4.3 g/dL Normal 3.4-4.8 [facility] Comment on above: Performed By: #### L 500.4100, L501.9520, L500.4050, L100.0100, L501.9985 #### [facility] [address] [place], [address] Albumin/Globulin [Mass ratio] 1.4 {ratio} Normal 0.9-2.4 [facility] Comment on above: Performed By: #### L 500.4100, L501.9520, L500.4050, L100.0100, L501.9985 #### [facility] [address] [place], [address] ALK PHOS 71 U/L Normal 35-104 [facility] Comment on above: Performed By: #### L 500.4100, L501.9520, L500.4050, L100.0100, L501.9985 #### [facility] [address] [place], [address] ALT [Catalytic activity/Vol] 13 U/L Normal <=34 [facility] Comment on above: Performed By: #### L 500.4100, L501.9520, L500.4050, L100.0100, L501.9985 #### [facility] [address] [place], [address] AST [Catalytic activity/Vol] 18 U/L Normal <=31 [facility] Comment on above: Performed By: #### L 500.4100, L501.9520, L500.4050, L100.0100, L501.9985 #### [facility] [address] [place], [address] Bilirubin [Mass/Vol] 0.37 mg/dL Normal 0.00-1.30 [facility] Comment on above: Performed By: #### L 500.4100, L501.9520, L500.4050, L100.0100, L501.9985 #### [facility] [address] [place], [address] BUN/CRE 28.7 RATIO High 10-20 [facility] Comment on above: Performed By: #### L 500.4100, L501.9520, L500.4050, L100.0100, L501.9985 #### [facility] [address] [place], [address] Calcium [Mass/Vol] 9.9 mg/dL Normal 7.6-11.0 [facility] Comment on above: Performed By: #### L 500.4100, L501.9520, L500.4050, L100.0100, L501.9985 #### [facility] [address] [place], [address] Chloride [Moles/Vol] 102 mmol/L Normal 98-108 [facility] Comment on above: Performed By: #### L 500.4100, L501.9520, L500.4050, L100.0100, L501.9985 #### [facility] [address] [place], [address] CO2 [Moles/Vol] 25.6 mmol/L Normal 21.0-32.0 [facility] Comment on above: Performed By: #### L 500.4100, L501.9520, L500.4050, L100.0100, L501.9985 #### [facility] [address] [place], [address] Creatinine [Mass/Vol] 0.60 mg/dL Low 0.70-1.20 [facility] Comment on above: Performed By: #### L 500.4100, L501.9520, L500.4050, L100.0100, L501.9985 #### [facility] [address] [place], [address] GAP 12 Normal 5-15 [facility] Comment on above: Performed By: #### L 500.4100, L501.9520, L500.4050, L100.0100, L501.9985 #### [facility] [address] [place], [address] GFR/1.73 sq M.predicted among non-blacks MDRD (S/P/Bld) [Vol rate/Area] 102 mL/min/{1.73_m2} Normal >60 [facility] Comment on above: Result Comment: mL/m in/1.73m2 CKD-EPI Creatinine Equation (2020) Performed By: #### L 500.4100, L501.9520, L500.4050, L100.0100, L501.9985 #### [facility] [address] [place], [address] Globulin (S) [Mass/Vol] 3.2 g/dL Normal 2.2-4.2 [facility] Comment on above: Performed By: #### L 500.4100, L501.9520, L500.4050, L100.0100, L501.9985 #### [facility] [address] [place], [address] Glucose [Mass/Vol] 100 mg/dL High 70-99 [facility] Comment on above: Performed By: #### L 500.4100, L501.9520, L500.4050, L100.0100, L501.9985 #### [facility] [address] [place], [address] Potassium [Moles/Vol] 4.2 mmol/L Normal 3.3-5.1 [facility] Comment on above: Performed By: #### L 500.4100, L501.9520, L500.4050, L100.0100, L501.9985 #### [facility] [address] [place], [address] Sodium [Moles/Vol] 139 mmol/L Normal 133-145 [facility] Comment on above: Performed By: #### L 500.4100, L501.9520, L500.4050, L100.0100, L501.9985 #### [facility] [address] [place], [address] T PROT 7.4 g/dL Normal 5.9-8.4 [facility] Comment on above: Performed By: #### L 500.4100, L501.9520, L500.4050, L100.0100, L501.9985 #### [facility] [address] [place], [address] Urea nitrogen [Mass/Vol] 17 mg/dL Normal 4-19 [facility] Comment on above: Performed By: #### L 500.4100, L501.9520, L500.4050, L100.0100, L501.9985 #### [facility] [address] [place], [address] Hemoglobin A1con 05-17-2025 HbA1c (Bld) [Mass fraction] 5.9 % High <=5.6 [facility] Comment on above: Result Comment: Norm al < 5.7 % Prediabetic 5.7 - 6.4 % Diabetic >or= 6.5 % Please note range changes. Performed By: #### L 500.4100, L501.9520, L500.4050, L100.0100, L501.9985 #### [facility] [address] [place], [address] Lipid Profileon 05-17-2025 CHOL:HDL 3.31 Normal [facility] Comment on above: Performed By: #### L 500.4100, L501.9520, L500.4050, L100.0100, L501.9985 #### [facility] [address] [place], [address] Cholesterol [Mass/Vol] 194 mg/dL Normal <=200 [facility] Comment on above: Result Comment: Chol esterol level, Desirable <200 mg/dL Borderline high cholesterol 200-239 mg/dL High cholesterol >=240 mg/dL Recommendations of the NCEP Adult Treatment Panel for the following risk-cutoff thresholds for the [place] population. Performed By: #### L 500.4100, L501.9520, L500.4050, L100.0100, L501.9985 #### [facility] [address] [place], [address] Cholesterol in HDL [Mass/Vol] 59 mg/dL Normal [facility] Comment on above: Result Comment: Piedad onal Cholesterol Education Program (NCEP) guidelines: <40 mg/dL: Low HDL-cholesterol (major risk factor for CHD) >= 60 mg/dL: High HDL-cholesterol (negative risk factor for CHD) HDL-cholesterol is affected by a number of factors, e.g. smoking, exercise, hormones, sex and age. Performed By: #### L 500.4100, L501.9520, L500.4050, L100.0100, L501.9985 #### [facility] [address] [place], [address] Cholesterol in LDL [Mass/Vol] 120 mg/dL Normal [facility] Comment on above: Result Comment: Bord nhytao=474-905 mg/dL Higher Dadt=250 mg/dL or greater Friedwald Equation for LDL-C Performed By: #### L 500.4100, L501.9520, L500.4050, L100.0100, L501.9985 #### [facility] [address] [place], [address] Cholesterol in VLDL [Mass/Vol] 15 mg/dL Normal 5-40 [facility] Comment on above: Performed By: #### L 500.4100, L501.9520, L500.4050, L100.0100, L501.9985 #### [facility] [address] [place], [place], [address] Triglyceride [Mass/Vol] 77 mg/dL Normal [facility] Comment on above: Result Comment: The drugs N-Acetylcysteine and Metamizole may falsely depress this assay. Normal range: <150 mg/dL Borderline High: 150-199 mg/dL High: 200-499 mg/dL Very High: >500 mg/dL Performed By: #### L 500.4100, L501.9520, L500.4050, L100.0100, L501.9985 #### [facility] [address] [place], [place], [address] Thyroid Stim Hormone (TSH)on 05-17-2025 TSH 0.084 uIU/mL Low 0.300-4.200 [facility] Comment on above: Performed By: #### L 501.19109, L3300.6820, L3300.6750, L501.9520, L506.0400 #### [facility] [address] [place], [place], [address] Vital Signs Date Time Vital Sign Value Performing Clinician Leidy feliciano 09-30-2023 08:46-0500 Body height 165.1 cm DO Katerine Tara Work Phone: [facility] 09-30-2023 08:41-0500 Body mass index (BMI) [Ratio] 22.8 kg/m2 DO Katerine Tara Work Phone: [facility] 09-30-2023 08:41-0500 Body weight 62.25 kg DO Katerine Tara Work Phone: [facility] 09-30-2023 08:41-0500 Diastolic blood pressure 72 mm[Hg] DO Katerine Atra Work Phone: [facility] 09-30-2023 08:41-0500 Systolic blood pressure 112 mm[Hg] DO Katerine Tara Work Phone: [facility] 09-25-2023 08:05-0500 Body mass index (BMI) [Ratio] 23.6 kg/m2 DO Katerine Albrightnger Work Phone: [facility] 09-25-2023 08:05-0500 Body temperature 98.1 [degF] DO Katerine Albrightnger Work Phone: [facility] 09-25-2023 08:05-0500 Body weight 64.52 kg DO Katerine Albrightnger Work Phone: [facility] 09-25-2023 08:05-0500 Diastolic blood pressure 62 mm[Hg] DO Katerine Albrightnger Work Phone: [facility] 09-25-2023 08:05-0500 Heart rate 75 /min DO Katerine Albrightnger Work Phone: [facility] 09-25-2023 08:05-0500 Respiratory rate 15 /min DO Katerine Albrightnger Work Phone: [facility] 09-25-2023 08:05-0500 SaO2% (BldA) [Mass fraction] 96 % DO Katerine Albrightnger Work Phone: [facility] 09-25-2023 08:05-0500 Systolic blood pressure 122 mm[Hg] DO Katerine Albrightnger Work Phone: [facility] Encounters Encounter Date Encounter Type Care Provider Facility Start: 06-14-2025 ambulatory Robert Alvarez Facility:[facility] Start: 05-30-2025 End: 05-30-2025 ambulatory Judith Campuzanoer VSC Facility:[facility] Start: 05-23-2025 End: 05-23-2025 ambulatory Judith Tara VSC Facility:[facility] Start: 05-17-2025 End: 05-17-2025 ambulatory Judith Tara VSC Facility:[facility] Start: 09-30-2023 End: 09-30-2023 ambulatory DO Katerine Pacheco Work Phone: [facility] Work Phone: Start: 09-30-2023 End: 09-30-2023 Patient encounter procedure DO Katerine Pacheco Work Phone: [facility] Work Phone: Start: 09-25-2023 End: 09-25-2023 Patient encounter procedure DO Katerine Pacheco Work Phone: [facility] Work Phone: Procedures Date Procedure Procedure Detail Performing Clinician Start: 09-30-2023 Screening mammography D O Katerine Pacheco Work Phone: Plan of Treatment Date Care Activity Detail Author Start: 09-30-2023 Liquid based cervica l cytology screening [facility] Path report.final Dx Spec [facility] Payers Date Payer Category Payer Unknown [id number] 2025 Self-pay [id number] 2025 Unknown [id number] 2009 Unknown [employer] [id number] Private Health Insurance [employer] [id number] Unknown [id number] Unknown [id number] Unknown [id number] Unknown [id number] Social History Date Type Detail Facility Start: [facility]23 [facility] Start: 06-27-2021 Occasional [facility] Start: 06-27-2021 None [facility] Start: 06-27-2021 Homeless [facility] Start: 06-27-2021 Non-smoker [facility] Start: 1965 Sex Assigned At Female [facility] Evaluation note Note Date & Type Note Facility Evaluation note Diagnosis Onset Date Atrophic vaginitis acute Stress incontinence of urine acute Encounter for routine gyneco logical examination noneactive [facility] Work Phone: Chief Complaint and Reason for Visit Chief Complaint FEVER, CHILLS, 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) Reason for Visit Atrophic vaginitis Stress incontinence [...] Provider, Referring Provider Active Margarita Camacho NP, NP-C Attending Provider Active Team Status: Inactive Member Role Status Dates Katerine Pacheco DO Primary Care Provider, Referring Provider Active DIANA Villalta Attending Provider Active Team Status: Inactive Member Role Status Dates Katerine Pacheco DO Primary Care Provider Active Margarita Camacho NP, NP-C Attending Provider, Referring Provider Active Goals (unrecognized section and content) Goals may be documented in a n alternate section INFORMATION SOURCE (unrecogn ized section and content) DATE CREATED AUTHOR 06/11/2025 [facility] FOR RECORDS PERTAINING TO PATIENTS WHO ARE [...] BE BASED ON THE PRIMARY CLINICAL RECORDS. [facility] [employer] [facility]. provides no warranty or guarantee of the accuracy or completeness of information in this document.
--- NOTE | 2025-06-14 06:53 | CT_ITS ---
PROCEDURE: BRAIN/HEAD W/WO CONTRAST 06/14/2025 REASON FOR EXAM: HEADACHES TECHNIQUE: Procedure Code: CTBRWW Modality: CT Procedure: BRAIN/HEAD W/WO CONTRAST Coronal and Sagittal reconstruction series were provided. CONTRAST: VOLUME: mL One or more dose reduction techniques were used (e.g., Automated exposure control, adjustment of the mA and/or kV according to patient size, use of iterative reconstruction technique). FINDINGS: No acute intracranial hemorrhage. No midline shift. The ventricles are normal in size and configuration. No extra-axial fluid collection is identified. No fracture. The calvarium is intact. The visualized paranasal sinuses and mastoid air cells are clear. No abnormal enhancement pattern. CT/Brain/Head W/WO Contrast IMPRESSION: No acute intracranial CT abnormality. Reading Location: [id number]
== END | disposition home or self-care (01) ==
LOC: CT 06:47
PROVIDERS: PCP Family Medicine; Referring Provider Otolaryngology; Visit Provider Otolaryngology
DX: R51.9 Headache, unspecified (principal)
CPT/HCPCS: 70470; Q9967